=== PATIENT | female | born 1980 | race Caucasian/White ===

== ENCOUNTER 2016-07-16 20:15 | Emergency (ER) | payer MEDICAID, OTHER ==
[~2016-07-16] VITALS: Ht 162.6 cm; Wt 64.0 kg
[~2016-07-16 20:15] MED LIST: BACT800T5 PO; XANA0.5T PO
[2016-07-16 20:20] VITALS: BP 148/113; PULSE 113; RESP 18; TEMP 98.2; O2SAT 100
[2016-07-16] MEDS ORDERED: OXYC1TAB36 PO (21:24)
[2016-07-16] MEDS ORDERED: IBUP-232 PO (21:24)
[2016-07-16] MEDS ORDERED: ALPR.5 PO (21:24)
[2016-07-16] MEDS ORDERED: ADDE30TA PO (21:24)
[2016-07-16] MEDS ORDERED: ASPI1TAB69 PO (21:24)
--- NOTE | 2016-07-16 21:26 | PD ---
HPI Chief Complaint: Pain: Acute or Chronic Time Seen by Provider: 21:06 Travel History International Travel<30 days: No Contact w/Intl Traveler<30days: No Traveled to known affect area: No History of Present Illness HPI 36-year-old female with recent left knee surgery about 3 weeks ago in [place] by Dr. Lopez with [facility], here for evaluation of left knee pain and swelling. The patient reports that for the last 3-4 days she has noticed worsening pain and swelling in her left knee. She has had subjective sweats, but is unsure if she has been having fevers per she denies recent trauma. Pain is mainly anterior and radiates down to her foot, worse with movements and palpation. She called the orthopedist office today, and they instructed her to present to the emergency department for evaluation for possible DVT or infection. The patient does not know exactly what procedure was performed, but states that it was for microfracture. She does not believe that any hardware was placed into her knee. 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) Cardiovascular Problems: Yes (murmur) Diminished Hearing: No Ovarian Cysts: Yes (SURGICAL REMOVAL) Past Surgical History Thoracic Surgery: Yes (BREAST AUGMENTATION) Other Surgery: Yes (DEVIATED SEPTUM REPAIR) Social History Alcohol Use: Yes (RARE) Tobacco Use: No Substance Use: No Allergies-Medications (Allergen,Severity, Reaction): Coded Allergies: No Known Allergies (Verified , 07/16/16) Reported Meds & Prescriptions Reported Meds & Active Scripts Active Reported Oxycodone-Acetaminophen 10-325 mg Tab 1 Tab PO Q6H PRN Ibuprofen 600 Mg Tab 600 Mg PO Q8HR PRN Aspirin 81 Mg Tabdr 81 Mg PO Q4HR Adderall (Amphetamine-Dextroamphetamine) 30 Mg Tab 30 Mg PO BID Avoid late evening doses. Space doses at least 4 to 6 hours if more than once/day dosing. Xanax (Alprazolam) 0.5 Mg Tab 0.5 Mg PO Q8H PRN Review of Systems Except as stated in HPI: all other systems reviewed are Neg Physical Exam Narrative GENERAL: Well-developed, well-nourished, comfortable, no acute distress. SKIN: Focused skin assessment warm/dry. No rash. Left anterior and lateral knee with well-healed surgical scars. HEAD: Atraumatic. Normocephalic. EYES: Pupils equal and round. No scleral icterus. No injection or drainage. ENT: Mucous membranes pink and moist. NECK: Trachea midline. No JVD. CARDIOVASCULAR: Regular rate and rhythm. Left dorsalis pedis pulses brisk. Normal capillary refill in left lower extremity. RESPIRATORY: No accessory muscle use. Clear to auscultation. Breath sounds equal bilaterally. GASTROINTESTINAL: Abdomen soft, non-tender, nondistended. MUSCULOSKELETAL: Mild swelling to left anterior knee. There are well-healed surgical scars over the anterior and lateral left knee. Left knee is without warmth or erythema. There is normal range of passive motion in the left knee. Mild anterior tenderness. Bilateral calves are supple, nontender. NEUROLOGICAL: Awake and alert. No obvious cranial nerve deficits. Motor grossly within normal limits. Normal speech. PSYCHIATRIC: Appropriate mood and affect; insight and judgment normal. Data Data Last Documented VS Vital Signs Date Time Temp Pulse Resp B/P Pulse Ox O2 Delivery O2 Flow Rate FiO2 07/16/16 21:35 88 14 145/95 100 Room Air 07/16/16 20:20 98.2 Orders Basic Metabolic Panel (Bmp) (07/16/16 21:20) Complete Blood Count With Diff (07/16/16 21:20) Prothrombin Time / Inr (Pt) (07/16/16 21:20) Act Partial Throm Time (Ptt) (07/16/16 21:20) Iv Access Insert/Monitor (07/16/16 21:20) Ecg Monitoring (07/16/16 21:20) Oximetry (07/16/16 21:20) Sodium Chloride 0.9% Flush (Ns Flush) (07/16/16 21:30) Ketorolac Inj (Toradol Inj) (07/16/16 21:30) Knee, Complete (4vws) (07/16/16 ) Westergren Sedimentation Rate (07/16/16 21:20) C-Reactive Protein (Crp) (07/16/16 21:20) Us Leg Venous Doppler (07/16/16 ) Labs Laboratory Tests Test 07/16/16 21:30 White Blood Count 8.3 TH/MM3 Red Blood Count 4.07 MIL/MM3 Hemoglobin 12.2 GM/DL Hematocrit 36.8 % Mean Corpuscular Volume 90.3 FL Mean Corpuscular Hemoglobin 29.9 PG Mean Corpuscular Hemoglobin 33.1 % Concent Red Cell Distribution Width 13.5 % Platelet Count 370 TH/MM3 Mean Platelet Volume 8.4 FL Neutrophils (%) (Auto) 52.8 % Lymphocytes (%) (Auto) 34.9 % Monocytes (%) (Auto) 9.0 % Eosinophils (%) (Auto) 2.6 % Basophils (%) (Auto) 0.7 % Neutrophils # (Auto) 4.4 TH/MM3 Lymphocytes # (Auto) 2.9 TH/MM3 Monocytes # (Auto) 0.7 TH/MM3 Eosinophils # (Auto) 0.2 TH/MM3 Basophils # (Auto) 0.1 TH/MM3 CBC Comment DIFF FINAL Differential Comment Erythrocyte Sedimentation Rate 4 mm/hr Prothrombin Time 10.7 SEC Prothromb Time International 1.0 RATIO Ratio Activated Partial 27.1 SEC Thromboplast Time Sodium Level 140 MEQ/L Potassium Level 3.5 MEQ/L Chloride Level 106 MEQ/L Carbon Dioxide Level 25.4 MEQ/L Anion Gap 9 MEQ/L Blood Urea Nitrogen 19 MG/DL Creatinine 0.93 MG/DL Estimat Glomerular Filtration 67 ML/MIN Rate Random Glucose 90 MG/DL Calcium Level 8.7 MG/DL [facility] Medical Decision Making Medical Screen Exam Complete: Yes Emergency Medical Condition: Yes Differential Diagnosis Postoperative pain, DVT less likely, septic arthritis less likely Narrative Course Vital signs reviewed. CBC is unremarkable. BMP is unremarkable. ESR is 4. Left leg venous duplex: CONCLUSION: No DVT in the left leg Left knee x-ray: FINDINGS: Four view examination of the left knee demonstrates no evidence of fracture or dislocation. Bony mineralization is normal. The articular surfaces are intact. The suprapatellar soft tissues have a normal configuration. Patient's clinical exam is not consistent with infectious process. Lab work also does not support an infectious process. Patient is able to flex and extend the knee with a normal range of motion without difficulty and without assistance. I do not believe that this is a septic joint. The left knee itself is not warm and there is no erythema. I believe that this is simply postoperative pain. Patient was made aware of all findings. She is resting comfortably. She has plenty of pain medication at home. At this point I believe she is stable for discharge home with outpatient follow-up with her orthopedist. She has an appointment with him for . Strict return instructions endorsed. She verbalizes understanding and agreement with plan. Diagnosis Primary Impression: Left knee pain Qualified Code: M25.562 - Left knee pain, unspecified chronicity Referrals: Orthopedist 3 days Additional Instructions: Follow-up with your orthopedist on as scheduled. Return to the emergency department for worsening symptoms or any other concerns as discussed. Disposition: 01 DISCHARGE HOME Condition: Stable Vipul Maldonado MD July 16, 2016 21:25
[2016-07-16] MEDS ORDERED: KETOROLAC TROMETHAMINE 30 MG/ML (IVP) VIAL IV PUSH ONE (21:30)
[2016-07-16] MEDS ORDERED: SODIUM CHLORIDE 0.9% FLUSH 10 ML FLUSH IV FLUSH PRN (21:30)
[2016-07-16 21:35] VITALS: BP 145/95; PULSE 88; RESP 14; O2SAT 100
[2016-07-16 21:52] LABS: AUTOMATED NEUTROPHIL # 4.4 TH/MM3 (1.8-7.7); BASOPHIL # 0.1 TH/MM3 (0-0.2); BASOPHIL % 0.7 % (0.0-2.0); EOSINOPHIL # 0.2 TH/MM3 (0-0.4); EOSINOPHIL % 2.6 % (0.0-4.0); HEMATOCRIT 36.8 % (35.0-46.0); HEMO FLAGS DIFF FINAL; LYMPH % 34.9 % (9.0-44.0); LYMPHOCYTE # 2.9 TH/MM3 (1.0-4.8); MEAN CELL VOLUME 90.3 FL (80.0-100.0); MEAN CORPUSCULAR HEMOGLOBIN 29.9 PG (27.0-34.0); MEAN CORPUSCULAR HGB CONC 33.1 % (32.0-36.0); NEUT % 52.8 % (16.0-70.0); PLATELET COUNT 370 TH/MM3 (150-450); RED BLOOD COUNT 4.07 MIL/MM3 (4.00-5.30); RED CELL DISTRIBUTION WIDTH 13.5 % (11.6-17.2); WHITE BLOOD COUNT 8.3 TH/MM3 (4.0-11.0)
[2016-07-16 22:00] LABS: POTASSIUM 3.5 MEQ/L (3.5-5.1)
[2016-07-16 22:03] LABS: BICARBONATE 25.4 MEQ/L (21.0-32.0)
[2016-07-16 22:04] LABS: APTT (PATIENT) 27.1 SEC (24.3-30.1); PROTHROMBIN TIME - PATIENT 10.7 SEC (9.8-11.6)
--- NOTE | 2016-07-16 22:39 | RADHPO ---
EXAM DATE/TIME: 07/16/2016 22:00 [facility] COMPARISON: No previous studies available for comparison. INDICATIONS : Left leg pain. MEDICAL HISTORY : Left leg pain. Ovarian cysts. SURGICAL HISTORY : Left knee surgery. ENCOUNTER: Initial ACUITY: 1 week PAIN SCORE: 3/10 LOCATION: Left leg. TECHNIQUE: Venous ultrasound of the leg was performed from the inguinal ligament to the proximal calf. Real-time, color Doppler and spectral tracing, compression and augmentation techniques were us ed. FINDINGS: There is normal compressibility of the deep venous system from the inguinal region to the proximal ca lf. No echogenic clot is seen in the lumen of the common femoral, femoral, popliteal, and posterior tibial veins. There is a normal response of the venous system to proximal and distal augmentation an d respiration. CONCLUSION: No DVT in the left leg Jack Mike MD on July 16, 2016 at 22:37 Board Certified Radiologist. This report was verified electronically.
--- NOTE | 2016-07-16 22:45 | RADHPO ---
EXAM DATE/TIME: 07/16/2016 22:16 [facility] COMPARISON: No previous studies available for comparison. INDICATIONS : Left knee pain post op surgery 3 weeks ago. MEDICAL HISTORY : None. SURGICAL HISTORY : left knee surgery x 2 ENCOUNTER: Initial ACUITY: 3 days PAIN SCORE: 9/10 LOCATION: Left knee FINDINGS: Four view examination of the left knee demonstrates no evidence of fracture or dislocation. Bony min eralization is normal. The articular surfaces are intact. The suprapatellar soft tissues have a nor mal configuration. CONCLUSION: No acute fracture. Jack Mike MD on July 16, 2016 at 22:42 Board Certified Radiologist. This report was verified electronically.
[2016-07-16 23:56] VITALS: BP 145/98; PULSE 98; RESP 18; O2SAT 100
== END 2016-07-16 23:57 | disposition home or self-care (01) ==
LOC: PHED 20:15
DX: M25.562 Pain in left knee (principal); M79.89 Other specified soft tissue disorders; F90.9 Attention-deficit hyperactivity disorder, unspecified type; F41.9 Anxiety disorder, unspecified; Z79.899 Other long term (current) drug therapy; Z79.82 Long term (current) use of aspirin; Z98.890 Other specified postprocedural states
CPT/HCPCS: 73564; 80048; 85025; 85610; 85652; 85730; 86140; 93971; 96374; 99284; J1885